=== PATIENT | female | born 1970 | race Caucasian/White ===

== ENCOUNTER → 2025-01-24 | Outpatient (BNVA) | payer MEDICAID, SELFPAY | END | disposition home or self-care (01) | PROVIDERS: PCP Nurse Practitioner Family; Referring Provider Nurse Practitioner Family; Visit Provider Urology | DX: N32.81 Overactive bladder (principal); N39.46 Mixed incontinence; E11.9 Type 2 diabetes mellitus without complications; I10 Essential (primary) hypertension; E66.9 Obesity, unspecified; Z68.34 Body mass index [BMI] 34.0-34.9, adult; F17.210 Nicotine dependence, cigarettes, uncomplicated | CPT/HCPCS: 81003; 99212; G0463 ==

== ENCOUNTER → 2025-06-20 | Outpatient (CLI) | payer MEDICAID, SELFPAY ==
--- NOTE | 2025-06-20 09:30 | XR_ITS ---
Examination: Esophagram standard Upright PA chest single view Upright soft tissue lateral neck single view Fluoroscopy 14 spot fluoroscopic films of the esophagus Date and time: June 20, 2025 0922 hours INDICATIONS: Difficulty swallowing 6 months technique and findings: Upright PA chest demonstrates normal heart size. Lungs Soft tissue lateral neck demonstrates advanced degenerative disc disease C5-C6 C6-C7 Patient swallowed thin barium with primary peristaltic esophageal waves noted There are secondary and tertiary esophageal contractions. There is mild intermittent gastroesophageal reflux. There is no stricture the gastroesophageal junction IMPRESSION: Esophageal dysmotility Mild intermittent gastroesophageal reflux Fluoroscopy 0.12 minute 14 spot fluoroscopic films of the esophagus
== END | disposition home or self-care (01) ==
LOC: CDIM 09:13
PROVIDERS: PCP Nurse Practitioner Family; Referring Provider Nurse Practitioner Family; Visit Provider Nurse Practitioner Family
DX: K21.9 Gastro-esophageal reflux disease without esophagitis (principal); K22.89 Other specified disease of esophagus
CPT/HCPCS: 74220; A4649